=== PATIENT | male | born 1965 | race Caucasian/White ===

== ENCOUNTER → 2016-11-15 | Outpatient (CLI) | payer BC ==
[2015-03-29 11:00] VITALS: BP 136/87
[~2016-11-15] MED LIST: BUPIVACAINE MPF 0.5% 10 ML VIAL for KCIC. IJ ONE; CEPH500T PO; ENOX40DI SQ; GABA-585 PO; HYDR-2762 PO; IBUP-1060 PO; INSU300I SQ; IOHEXOL 300 MG/ML 50 ML VIAL. INT ART ONE; LIDOCAINE 1% Multi-Dose 20 ML VIAL. ID ONE; METF-620 PO; WARF5TAB7 PO; methylPREDNISolone ACETATE 40 MG/ML VIAL. INT ART ONE
--- NOTE | 2016-11-16 08:56 | KCIC ---
PROCEDURE Therapeutic right ankle injection using fluoroscopic guidance. HISTORY Ankle pain. TECHNIQUE The procedure was explained to the patient as were potential risks, including infection, bleeding or allergic reaction. All questions were answered. Informed written and verbal consent was obtained. The anterior ankle was prepped and draped in the usual sterile manner. Following administration of local anesthetic, a 22-gauge needle was advanced into the tibiotalar joint without difficulty, with care taken to avoid the tendons and vascular structures. Following negative aspiration, intra-articular position was confirmed with 2 cc of Omnipaque 300 contrast. Subsequently, a mixture of 1 cc (40 mg) Depo-Medrol, 2 cc 0.5% Marcaine and 2 cc 1% lidocaine were injected without difficulty. The needle was removed. There was good hemostasis at the injection site. The patient left in stable condition without immediate complication. The patient was given postprocedural instructions, instructed to contact us or the emergency room if there are any complications. A single spot image was obtained. FLUOROSCOPY TIME: 49 seconds Electronically signed by: Meño Bello MD (11/16/2016 8:53 AM) [facility]
== END | disposition home or self-care (01) ==
LOC: RAD 11-14 10:16
PROVIDERS: ATTEND Nurse Practitioner Gerontology
DX: M19.071 Primary osteoarthritis, right ankle and foot (principal)
CPT/HCPCS: 20610; 77002; J1030; Q9967

== ENCOUNTER → 2017-03-05 | Outpatient (CLI) | payer BC ==
[2015-03-29 11:00] VITALS: BP 136/87
--- NOTE | 2017-03-05 15:04 | KCIC ---
PROCEDURE Therapeutic right ankle injection using fluoroscopic guidance. HISTORY Ankle pain. Pain is chronic. TECHNIQUE The procedure was explained to the patient as were potential risks, including infection, bleeding or allergic reaction. All questions were answered. Informed written and verbal consent was obtained. The anterior ankle was prepped and draped in the usual sterile manner. Following administration of local anesthetic, a 22-gauge needle was advanced into the tibiotalar joint without difficulty, with care taken to avoid the tendons and vascular structures. Following negative aspiration, intra-articular position was confirmed with 1 cc of Omnipaque 300 contrast. Subsequently, a mixture of 1 cc (40 mg) Depo-Medrol, 2 cc 0.5% Marcaine and 2 cc 1% lidocaine were injected without difficulty. The needle was removed. There was good hemostasis at the injection site. The patient left in stable condition without immediate complication. A single spot image was obtained. FLUOROSCOPY TIME: 23 seconds Electronically signed by: Meño Bello MD (03/05/2017 3:01 PM) [facility]
== END | disposition home or self-care (01) ==
LOC: KCIC 14:08
PROVIDERS: ATTEND Nurse Practitioner Gerontology
DX: M25.571 Pain in right ankle and joints of right foot (principal)
CPT/HCPCS: 20610; 77002

== ENCOUNTER → 2017-11-08 | Outpatient (CLI) | payer OTHER | END | disposition home or self-care (01) | LOC: KCIC MRI 14:03 | DX: M25.571 Pain in right ankle and joints of right foot (principal); I10 Essential (primary) hypertension; E11.9 Type 2 diabetes mellitus without complications; R60.0 Localized edema; Z85.51 Personal history of malignant neoplasm of bladder; Z86.718 Personal history of other venous thrombosis and embolism | CPT/HCPCS: 73721 ==

== ENCOUNTER → 2017-12-19 | Day surgery (SDC) | payer OTHER ==
[~2017-12-19] MED LIST changes: -BUPIVACAINE MPF 0.5% 10 ML VIAL for KCIC. IJ ONE; +HYDROmorphone 2 MG/ML VIAL IV PRN; -IOHEXOL 300 MG/ML 50 ML VIAL. INT ART ONE; +IV RINGERS,LACTATED 1000ML 1,000 ML IV SCH; -LIDOCAINE 1% Multi-Dose 20 ML VIAL. ID ONE; +LIDOCAINE 1% PF 2 ML VIAL. ID PRN; +LIDOCAINE 2% PF Vial for OR 5 ML VIAL. ONE; -METF-620 PO; +METF10007 PO; +MORPHINE SULFATE 2 MG/ML VIAL. IV PRN; +ONDANSETRON PF 4 MG/2 ML VIAL. IV PRN; +PROCHLORPERAZINE 10 MG/2 ML VIAL. IV PRN; +PROPOFOL 40 ML IV ONE; +WARF-31 PO; -WARF5TAB7 PO; +fentaNYL PF VIAL 100 MCG/2 ML VIAL IV PRN; +insulin SQ; -methylPREDNISolone ACETATE 40 MG/ML VIAL. INT ART ONE
[2017-12-19 13:18] VITALS: BP 154/78
== END | disposition home or self-care (01) ==
LOC: ENDOS 11:28
PROVIDERS: ATTEND Internal Medicine Gastroenterology
DX: K22.2 Esophageal obstruction (principal); K29.50 Unspecified chronic gastritis without bleeding; M19.90 Unspecified osteoarthritis, unspecified site; E11.9 Type 2 diabetes mellitus without complications; M79.7 Fibromyalgia; K21.9 Gastro-esophageal reflux disease without esophagitis; I10 Essential (primary) hypertension; Z83.3 Family history of diabetes mellitus; Z82.49 Family history of ischemic heart disease and other diseases of the circulatory system; Z82.3 Family history of stroke; F17.200 Nicotine dependence, unspecified, uncomplicated; Z79.84 Long term (current) use of oral hypoglycemic drugs; Z79.899 Other long term (current) drug therapy; Z98.890 Other specified postprocedural states
CPT/HCPCS: 43235; 43450; 82962; J2001; J2704

== ENCOUNTER → 2018-01-10 | Day surgery (SDC) | payer OTHER ==
[~2018-01-10] MED LIST changes: -HYDROmorphone 2 MG/ML VIAL IV PRN; -LIDOCAINE 1% PF 2 ML VIAL. ID PRN; +LIDOCAINE 2% PF 2ML VIAL. ONE; -LIDOCAINE 2% PF Vial for OR 5 ML VIAL. ONE; -MORPHINE SULFATE 2 MG/ML VIAL. IV PRN; -ONDANSETRON PF 4 MG/2 ML VIAL. IV PRN; -PROCHLORPERAZINE 10 MG/2 ML VIAL. IV PRN; +PROPOFOL 20 ML IV ONE; -fentaNYL PF VIAL 100 MCG/2 ML VIAL IV PRN
[2018-01-10 11:16] VITALS: BP 145/76
--- NOTE | 2018-01-10 12:24 | CONS ---
DATE OF CONSULTATION: 01/10/2018 UPDATE HISTORY AND PHYSICAL REFERRING PHYSICIAN: Karthik Arriaga. REASON: Colorectal screening. HISTORY OF PRESENT ILLNESS: A 52-year-old male whose past medical history is significant for gastroesophageal reflux disease as well as arthritis, diabetes, fibromyalgia, high blood pressure. He is seen for a screening colon exam. Bowel habits are regular without diarrhea or constipation. There has been no melena or hematochezia. Weight and appetite otherwise have been stable. No additional complaints since his recent upper scope. PAST MEDICAL HISTORY: Arthritis, blood clot, diabetes, fibromyalgia, GERD, high blood pressure. ALLERGIES: None. MEDICATIONS: Include gabapentin, hydrocodone, metformin and insulin. PAST SURGICAL HISTORY: Status post ankle surgery. SOCIAL HISTORY: He is a smoker and drinker. FAMILY HISTORY: Significant for CVA, diabetes, and hypertension with his mother. REVIEW OF SYSTEMS: Per records. PHYSICAL EXAMINATION: GENERAL: Reveals a well-nourished, well-developed male, who is alert, cooperative, in no acute distress. VITAL SIGNS: Temperature 97.3, pulse 58, respirations 18. HEENT: Normocephalic and atraumatic head. Pupils and extraocular muscles are not tested. Sclerae are anicteric. NECK: Supple. LUNGS: Clear. CARDIOVASCULAR: Reveals S1, S2 without S3, S4 or appreciable murmur. ABDOMEN: Reveals a soft abdomen, normal bowel sounds without appreciable hepatosplenomegaly. EXTREMITIES: Reveals no cyanosis, clubbing or edema. IMPRESSION: Colorectal screening is warranted at this time. Risks and benefits of procedure have been previously discussed, the patient is willing to proceed. MING PEOPLES MD DR: KAM/zeeshan JOB#: [id number] / [id number]
== END | disposition home or self-care (01) ==
LOC: SURG 09:29
PROVIDERS: ATTEND Internal Medicine Gastroenterology
DX: Z12.11 Encounter for screening for malignant neoplasm of colon (principal); K64.0 First degree hemorrhoids; K21.9 Gastro-esophageal reflux disease without esophagitis; M19.90 Unspecified osteoarthritis, unspecified site; I10 Essential (primary) hypertension; E11.9 Type 2 diabetes mellitus without complications; M79.7 Fibromyalgia; Z79.4 Long term (current) use of insulin; Z79.84 Long term (current) use of oral hypoglycemic drugs; Z79.899 Other long term (current) drug therapy; Z98.890 Other specified postprocedural states; Z72.89 Other problems related to lifestyle; F17.200 Nicotine dependence, unspecified, uncomplicated; Z83.3 Family history of diabetes mellitus; Z82.49 Family history of ischemic heart disease and other diseases of the circulatory system; Z82.3 Family history of stroke
CPT/HCPCS: 45378; 82962; J2001; J2704

== ENCOUNTER → 2018-08-29 | Outpatient (CLI) | payer OTHER ==
[2018-01-10 11:16] VITALS: BP 145/76
[~2018-08-29] MED LIST changes: +CIPR500T94 PO; +GABA300C18 PO; -HYDR-2762 PO; +HYDR-2765 PO; +INSU100I32 SQ; -IV RINGERS,LACTATED 1000ML 1,000 ML IV SCH; -LIDOCAINE 2% PF 2ML VIAL. ONE; +LISI-334 PO; +PROAIR RESPICL90 MCG IH; -PROPOFOL 20 ML IV ONE; -PROPOFOL 40 ML IV ONE; +VENTOLIN HFA18 GM INH
--- NOTE | 2018-08-29 12:13 | KCIC ---
Examination: FOREARM RIGHT History: Puncture wound of the anterior forearm Comparison/Correlation: None Findings: Frontal and lateral views of the right forearm were obtained. Just superior to site is noted to have a puncture wound, there is a small linear density measuring 0.4 cm within the anterior soft tissues. Spurring about the elbow is noted. Bony densities are present at the olecranon fossa region. Possibly of loose bodies is not excluded. No fracture or bony destruction. Impression: Radiopaque punctate foreign body within the anterior soft tissues of the proximal forearm in close proximity to the site of the puncture wound on the basis of the lateral view. Degenerative changes about the elbow. This bodies not excluded involving the elbow. Electronically signed by: Ruy Guillen MD (08/29/2018 12:10 PM) [id number]
== END | disposition home or self-care (01) ==
LOC: KCIC 10:49
PROVIDERS: ATTEND Family Medicine
DX: S51.841A Puncture wound with foreign body of right forearm, initial encounter (principal); X58.XXXA Exposure to other specified factors, initial encounter; Y93.89 Activity, other specified; Y92.89 Other specified places as the place of occurrence of the external cause; Y99.8 Other external cause status; M19.021 Primary osteoarthritis, right elbow
CPT/HCPCS: 73090

== ENCOUNTER → 2018-09-08 | Day surgery (SDC) | payer OTHER ==
[~2018-09-08] VITALS: Ht 177.8 cm; Wt 101.2 kg
[~2018-09-08] MED LIST changes: +CALCIUM CARBONATE 500 MG TAB.CHEW PO PRN; +DEXAMETHASONE SOD PHOS 4 MG/ML VIAL ONE; +HYDROcodone/APAP 5/325MG 1 TAB TABLET PO ONE; +HYDROmorphone 2 MG/ML VIAL IV PRN; +IV RINGERS,LACTATED 1000ML 1,000 ML IV SCH; +LIDOCAINE 1% PF 2 ML VIAL. ID PRN; +LIDOCAINE 1%/EPI 1:100,000 20 ML VIAL. ONE; +LIDOCAINE 2% PF 5 ML VIAL. ONE; +MIDAZOLAM HCL/PF 2 MG/2 ML VIAL. ONE; +MORPHINE SULFATE 2 MG/ML VIAL. IV PRN; +ONDANSETRON PF 4 MG/2 ML VIAL. IV PRN; +ONDANSETRON PF 4 MG/2 ML VIAL. ONE; +PROCHLORPERAZINE 10 MG/2 ML VIAL. IV PRN; +PROPOFOL 20 ML IV ONE; +SEVOFLURANE 31 TO 60 MINUTES. IH ONE; +ceFAZolin 2GM PREMIX 2 GM/50 ML BAG IV ONE; +fentaNYL PF VIAL 100 MCG/2 ML VIAL IV PRN; +fentaNYL PF VIAL 100 MCG/2 ML VIAL ONE
--- NOTE | 2018-09-08 11:13 | DISCH ---
DISCHARGE INSTRUCTIONS Condition on Discharge Condition on Discharge: Stable Activity After Discharge Activity Instructions for Disc: Activity as tolerated Diet after Discharge Diet after Discharge: Diabetic No Calorie Level Wound Incision Care Wound/Incision Care: Other, see below (keep dressing clean and dry X 72 hours, may then remove and shower) Follow-Up Follow up with: Dr Funes in 1 week in office, call for appt [phone] MING FUNES MD September 08, 2018 11:13
--- NOTE | 2018-09-08 11:19 | PDOC4 ---
Operative Note Operative Note Operative Note: Preoperative Diagnosis: Foreign body in right forearm Postoperative Diagnosis: Same Procedure: Excision of right forearm foreign body Surgeon: Rakesh Anesthesia: Gen. EBL: 10 mL Specimen: Right forearm foreign body Drains: None Complications: None Indication: The patient is a 53-year-old male who states that a piece of metal became lodged into his right forearm while at work. X-rays confirm the presence of a foreign body in the soft tissues of the right forearm. He was referred for removal as it does appear symptomatic. The risks of surgery were discussed which include bleeding, infection, nerve injury, pain, inability to retrieve foreign body, potential need for additional surgery or procedure. He understands and would like to proceed. Description: The patient was taken to the operating room and placed supine on the operating table. Gen. anesthesia was performed. The right forearm was then prepped and draped in a standard surgical manner. The C-arm was used to assist with localization and removal of the foreign body throughout the case. Using C- arm the approximate location of the foreign body was readily identified in the proximal medial aspect of the forearm. An incision was made in the skin with a scalpel. Blunt dissection was carried down through subcutaneous tissue. Based on the C-arm evaluation the foreign body seemed to lie in the muscle tissue blunt dissection was used in the region and we were able to identify the foreign body which corresponded to a black fragment of metal. The foreign object was readily retrieved and sent as a specimen. There was no evidence of any purulent fluid or signs of infection. The wound was irrigated with sterile saline. Hemostasis was good. The subcutaneous tissue was closed with 3-0 Vicryl. The skin was approximated with 4-0 Monocryl and the incision was infiltrated with half percent Marcaine with epinephrine. Steri-Strips and a sterile dressing were applied. The patient tolerated the procedure well and was sent to the recovery room in stable condition. At the end of the case all counts were correct. MING FUNES MD September 08, 2018 11:19
--- NOTE | 2018-09-08 12:13 | EKG ---
[facility] [address] [place] [address] Test Date: 2018-09-08 Test Time: 12:05:58 Pat Name: LEON PERDOMO Department: Room: Gender: M Medical Records Secretary: VIKI : 1965 Requested By: MICHELLE SPEAR Order Number: [id number] Reading MD: Measurements Intervals [place] Rate: 69 P: 52 MS: 186 QRS: 25 QRSD: 74 T: 53 QT: 376 QTc: 404 Interpretive Statements SINUS RHYTHM QRS(T) CONTOUR ABNORMALITY CONSISTENT WITH ANTEROSEPTAL INFARCT AGE UNDETERMINED ABNORMAL ECG RI6.01 Unconfirmed report No previous ECG available for comparison
[2018-09-08 12:52] VITALS: BP 154/82
== END | disposition home or self-care (01) ==
LOC: SURG 08:25
PROVIDERS: ATTEND Surgery
DX: M79.5 Residual foreign body in soft tissue (principal); E11.40 Type 2 diabetes mellitus with diabetic neuropathy, unspecified; I10 Essential (primary) hypertension; K29.50 Unspecified chronic gastritis without bleeding; K21.9 Gastro-esophageal reflux disease without esophagitis; J44.9 Chronic obstructive pulmonary disease, unspecified; F17.210 Nicotine dependence, cigarettes, uncomplicated; Z98.890 Other specified postprocedural states; Z72.89 Other problems related to lifestyle; Z79.84 Long term (current) use of oral hypoglycemic drugs
CPT/HCPCS: 25248; 76000; 93005; J0696; J0780; J1100; J2001; J2405; J2704; J3010; J3490; J2250

== ENCOUNTER → 2018-11-27 | Outpatient (CLI) | payer OTHER ==
[2018-09-08 12:52] VITALS: BP 154/82
[~2018-11-27] MED LIST changes: -CALCIUM CARBONATE 500 MG TAB.CHEW PO PRN; -DEXAMETHASONE SOD PHOS 4 MG/ML VIAL ONE; -HYDROcodone/APAP 5/325MG 1 TAB TABLET PO ONE; -HYDROmorphone 2 MG/ML VIAL IV PRN; -IV RINGERS,LACTATED 1000ML 1,000 ML IV SCH; -LIDOCAINE 1% PF 2 ML VIAL. ID PRN; -LIDOCAINE 1%/EPI 1:100,000 20 ML VIAL. ONE; -LIDOCAINE 2% PF 5 ML VIAL. ONE; -MIDAZOLAM HCL/PF 2 MG/2 ML VIAL. ONE; -MORPHINE SULFATE 2 MG/ML VIAL. IV PRN; -ONDANSETRON PF 4 MG/2 ML VIAL. IV PRN; -ONDANSETRON PF 4 MG/2 ML VIAL. ONE; -PROCHLORPERAZINE 10 MG/2 ML VIAL. IV PRN; -PROPOFOL 20 ML IV ONE; -SEVOFLURANE 31 TO 60 MINUTES. IH ONE; -ceFAZolin 2GM PREMIX 2 GM/50 ML BAG IV ONE; -fentaNYL PF VIAL 100 MCG/2 ML VIAL IV PRN; -fentaNYL PF VIAL 100 MCG/2 ML VIAL ONE
--- NOTE | 2018-11-27 11:21 | KCIC ---
MR of the left shoulder HISTORY: Left shoulder pain after fall 2 years ago. TECHNIQUE: Routine multiplanar sequences are obtained. FINDINGS: Acromioclavicular joint is degenerative, with mild undersurface osteophytes and mass effect. Full-thickness rupture of the anterior supraspinatus tendon measures 2.5 cm AP diameter with 2.5 cm retraction. Partial tearing through the more posterior rotator cuff. Generalized tendinosis. No measurable subscapularis tendon tear. Mild fluid in the subdeltoid bursa. No significant glenohumeral joint effusion. Mild degenerative changes at the glenohumeral joint with small osteophytes. Suboptimal labral evaluation due to motion degradation. Diffuse labral irregularity compatible with degeneration, possible mild degenerative tearing. No definite labral detachment. Biceps tendon demonstrates tendinosis. No aggressive bone destruction or acute fracture. No acute soft tissue abnormality. IMPRESSION: 1. Moderate full-thickness retracted rotator cuff tear of the supraspinatus tendon. 2. Primary osteoarthritis. 3. Generalized labral degeneration. Electronically signed by: Meño Bello MD (11/27/2018 11:18 AM) [facility]
== END | disposition home or self-care (01) ==
LOC: KCIC MRI 07:45
PROVIDERS: ATTEND Orthopaedic Surgery
DX: S46.012A Strain of muscle(s) and tendon(s) of the rotator cuff of left shoulder, initial encounter (principal); M19.012 Primary osteoarthritis, left shoulder; M25.712 Osteophyte, left shoulder; X58.XXXA Exposure to other specified factors, initial encounter; Y93.89 Activity, other specified; Y92.89 Other specified places as the place of occurrence of the external cause; Y99.8 Other external cause status
CPT/HCPCS: 73221

== ENCOUNTER 2019-02-27 05:57 | Day surgery (SDC) | payer OTHER ==
[~2019-02-27] VITALS: Ht 170.2 cm; Wt 106.0 kg
[~2019-02-27 05:57] MED LIST changes: +IBUP200T77 PO; +NORT50CA PO
[2019-02-27] MEDS ORDERED: DEXAMETHASONE SOD PHOS 4 MG/ML VIAL ONE ×2 (06:30→06:57)
[2019-02-27] MEDS ORDERED: PROPOFOL 20 ML IV ONE ×2 (06:30→08:14)
[2019-02-27] MEDS ORDERED: INSULIN LISPRO 100 UNIT/ML 3ML VIAL for OP,RR ONLY. SQ PRN (06:30)
[2019-02-27] MEDS ORDERED: ONDANSETRON PF 4 MG/2 ML VIAL. ONE (06:30)
[2019-02-27] MEDS ORDERED: LIDOCAINE 2% PF 5 ML VIAL. ONE (06:30)
[2019-02-27] MEDS ORDERED: ROCURONIUM 50 MG/5 ML VIAL. ONE ×2 (06:31→07:52)
[2019-02-27] MEDS ORDERED: fentaNYL PF VIAL 100 MCG/2 ML VIAL ONE ×2 (06:54→07:42)
[2019-02-27] MEDS ORDERED: MIDAZOLAM HCL/PF 2 MG/2 ML VIAL. ONE ×2 (06:54→07:04)
[2019-02-27] MEDS ORDERED: EPINEPHrine VIAL 30 MG/30 ML VIAL ONE (06:57)
[2019-02-27] MEDS ORDERED: KETOROLAC 30 MG/ML VIAL. ONE (06:58)
[2019-02-27] MEDS ORDERED: HYDROmorphone 2 MG/ML VIAL IV PRN (07:00)
[2019-02-27] MEDS ORDERED: PROCHLORPERAZINE 10 MG/2 ML VIAL. IV PRN (07:00)
[2019-02-27] MEDS ORDERED: IV RINGERS,LACTATED 1000ML 1,000 ML IV SCH (07:00)
[2019-02-27] MEDS ORDERED: MORPHINE SULFATE 2 MG/ML VIAL. IV PRN (07:00)
[2019-02-27] MEDS ORDERED: fentaNYL PF VIAL 100 MCG/2 ML VIAL IV PRN (07:00)
[2019-02-27] MEDS ORDERED: ROPIVacaine 0.5% PF 20 ML VIAL. ONE (07:04)
[2019-02-27 07:16] LABS: CALCIUM 9.4 mg/dL (8.5-10.1); CREATININE 1.1 mg/dL (0.7-1.3); POTASSIUM 4.6 mmol/L (3.5-5.1)
[2019-02-27 07:21] LABS: ALBUMIN 3.8 g/dL (3.4-5.0); TOTAL BILIRUBIN 0.5 mg/dL (0.2-1.0); TOTAL PROTEIN 7.6 g/dL (6.4-8.2)
[2019-02-27] MEDS ORDERED: ceFAZolin 2GM PREMIX 2 GM/50 ML BAG IV ONE (08:00)
--- NOTE | 2019-02-27 08:02 | RAD ---
CHEST PA LATERAL Clinical indications: Preoperative study for left shoulder rotator cuff repair. History of hypertension and smoking COMPARISON: March 25, 2005 Findings: No acute lung infiltrate or pleural effusion or pulmonary edema or lung mass or pneumothorax is seen. The heart size, pulmonary vasculature, mediastinum and both hedy are unremarkable. The osseous structures appear intact. Impression: No acute radiographic abnormality is seen. Electronically signed by: Al García MD (02/27/2019 7:59 AM) [facility]
[2019-02-27] MEDS ORDERED: GLYCOPYRROLATE 1 MG/5 ML VIAL. ONE (08:20)
[2019-02-27] MEDS ORDERED: NEOSTIGMINE METHYLSULFATE 5 MG/5 ML SYRINGE. ONE (08:20)
[2019-02-27] MEDS ORDERED: SEVOFLURANE 61 TO 120 MINUTES. IH ONE (08:21)
[2019-02-27 08:35] LABS: BASO # 0.1 x10^3/uL (0.0-0.2); BASO % 1 % (0-3); EOS # 0.6 x10^3/uL (0.0-0.7); EOS % 5 % (0-3); HEMATOCRIT 42.3 % (39.0-53.0); HEMOGLOBIN 14.6 g/dL (13.0-17.5); LYMPH # 2.5 x10^3/uL (1.0-4.8); LYMPH % 21 % (24-48); MEAN CORPUSCULAR HEMOGLOBIN 33 pg (25-35); MEAN CORPUSCULAR HGB CONC 35 g/dL (31-37); MEAN CORPUSCULAR VOLUME 96 fL (79-100); MONO # 0.9 x10^3/uL (0.0-1.1); MONO % 8 % (0-9); NEUT # 8.1 x10^3/uL (1.8-7.7); NEUT % 66 % (31-73); PLATELET COUNT 375 x10^3/uL (140-400); RED BLOOD COUNT 4.42 x10^6/uL (4.30-5.70); RED CELL DISTRIBUTION WIDTH 12.3 % (11.5-14.5); WHITE BLOOD COUNT 12.3 x10^3/uL (4.0-11.0)
[2019-02-27] MEDS ORDERED: OXYC1TAB19 PO (10:09)
[2019-02-27] MEDS: fentaNYL PF VIAL 100 MCG/2 ML VIAL IV PRN ×2 (10:13→10:26)
--- NOTE | 2019-02-27 10:14 | DISCH ---
DISCHARGE INSTRUCTIONS Condition on Discharge Condition on Discharge: Stable Activity After Discharge Activity Instructions for Disc: Other, see below (passive range of motion left shoulder only (lift with other arm or with physical therapist) otherwise keep arm at side) Exercise Instruction after Dis: Exercise per therapy (last where immobilizer when sleeping may remove during the day to hang arm down for pendulum exercises gentle range of motion eating or other fine motor use with the elbow at the side) Diet after Discharge Diet after Discharge: Diabetic No Calorie Level Wound Incision Care Wound/Incision Care: Change dressing (May remove dressing in 2 days may then shower), Other, see below Community/Resources/Services Services at Discharge: PT EVALUATE & TREAT (set up physical therapy early next week as soon as possible, prescription provided with instructions) Contacting the after DC Call your doctor for: Concerns you may have Follow-Up Follow up with: Dr. Silvestre 10 days SIRISHA SILVESTRE MD Feb 27, 2019 10:13
[2019-02-27] MEDS ORDERED: hydrALAZINE 20 MG/ML VIAL. ONE (10:16)
[2019-02-27] MEDS ORDERED: hydrALAZINE 20 MG/ML VIAL. IVP PRN (10:30)
[2019-02-27] MEDS ORDERED: HYDROcodone/APAP 7.5/325MG 1 TAB TABLET PO ONE (10:30)
[2019-02-27 10:50] VITALS: BP 150/72
--- NOTE | 2019-02-27 12:10 | PDOC4 ---
Operative Note Operative Note Date of surgery: 02/27/2019 Preoperative diagnosis: Left rotator cuff tear Postoperative diagnosis: Same with full-thickness distal supraspinatus tear impingement with a type 2+ acromion and type I SLAP tear Operative procedure: Left shoulder arthroscopy arthroscopic rotator cuff repair debridement of a type I SLAP tear and subacromial decompression Surgeon: Konrad Anesthesia: Gen. plus scalene block Estimated blood loss: 15 mL Complications: None Operative indications: Please see my orthopedic clinic note for detailed operative indications and note that we covered preoperatively the possibility of nonhealing infection nerve or blood vessel damage continued pain medical or other anesthetic complications among others and once again covered the postoperative restrictions expected and the long healing process requiring extensive physical therapy all his questions were answered he wishes to proceed with surgical evaluation and treatment having given informed consent Operative text: Patient identified procedure verified patient placed in the supine position on the operating table. After adequate amounts of general anesthesia plus a pre-existing scalene block were obtained he was placed decubitus left side up on the beanbag all bony prominences were well-padded and the left shoulder was examined under anesthesia he found to have full range of motion no instability the left shoulder was then prepped and draped in standard sterile fashion placed in the arthroscopic arm ascencio with a total of 10 pounds of traction after timeout was performed patient procedure identified and v erified a standard posterior portal was established an anterior portal established using spinal needle localization and the shoulder joint was systematically examined. He was noted to have a type I SLAP tear with labral fraying that extended to the anterior and posterior labrum with no insertional instability and therefore was debrided back to stable tissue using arthroscopic shaver biceps anchor was intact biceps showed no evidence of instability the subscapularis insertion was intact capsule ligament structures were otherwise normal and glenohumeral cartilage was well-preserved. The subacromial space was then entered and subacromial bursa tissue was cleared for visualization and the full-thickness rotator cuff identified and debrided as was the rotator cuff footprint. Since he did have a 2+ acromion with large anterior acromial spur an arthroscopic bur was used to convert the acromion to a type I removing the anterior acromial spur and a total of 2 Feli absorbable anchors were placed along the medial row double loaded and all 4 suture limbs associated with each anchor were passed separately in simple fashion and anchored laterally with a total of 2 Ventix absorbable anchors excellent apposition of the rotator cuff was noted with a watertight repair in all degrees of internal/external rotation any bony fragments were removed with arthroscopic shaver the joint was drained of arthroscopic fluid portals closed with nylon suture sterile dressings were applied patient was placed in an immobilizer extirpated transferred to postop holding in stable condition having tolerated procedure well SIRISHA PANIAGUA MD Feb 27, 2019 12:10
== END 2019-02-27 11:00 | disposition home or self-care (01) ==
LOC: SURG 05:57
PROVIDERS: ATTEND Orthopaedic Surgery
DX: S46.012A Strain of muscle(s) and tendon(s) of the rotator cuff of left shoulder, initial encounter (principal); S43.432A Superior glenoid labrum lesion of left shoulder, initial encounter; M75.42 Impingement syndrome of left shoulder; I10 Essential (primary) hypertension; J44.9 Chronic obstructive pulmonary disease, unspecified; K21.9 Gastro-esophageal reflux disease without esophagitis; K57.30 Diverticulosis of large intestine without perforation or abscess without bleeding; E11.42 Type 2 diabetes mellitus with diabetic polyneuropathy; M79.7 Fibromyalgia; E66.9 Obesity, unspecified; Z68.36 Body mass index [BMI] 36.0-36.9, adult; Z86.718 Personal history of other venous thrombosis and embolism; Z87.891 Personal history of nicotine dependence; Z72.89 Other problems related to lifestyle; Z79.84 Long term (current) use of oral hypoglycemic drugs; Z98.890 Other specified postprocedural states; X58.XXXA Exposure to other specified factors, initial encounter; Y93.89 Activity, other specified; Y92.89 Other specified places as the place of occurrence of the external cause; Y99.8 Other external cause status
CPT/HCPCS: 29822; 29826; 29827; 36415; 64415; 71046; 80053; 82962; 85025; A7015; C1713; J0171; J0360; J0696; J1100; J2001; J2250; J2405; J2704; J2710; J2795; J3010; J3490; J1885

== ENCOUNTER → 2020-01-28 | Outpatient (CLI) | payer OTHER ==
[~2020-01-28] MED LIST changes: +OXYC1TAB19 PO
--- NOTE | 2020-01-28 11:53 | KCIC ---
EXAMINATION: Magnetic resonance imaging (MRI) of the cervical spine without contrast 01/28/2020 10:15 AM HISTORY: Right-sided cervical radiculopathy. Right-sided shoulder pain and knot in the muscles. Right upper extremity numbness TECHNIQUE: Multiplanar multi-weighted MRI of the cervical spine was performed without intravenous contrast using the standard cervical spine protocol. Contrast information: None administered COMPARISON: None available. FINDINGS: The alignment of the cervical spine is normal. Vertebral bodies demonstrate normal signal intensity on all sequences. No acute fracture is identified; however, if trauma is suspected, a CT scan would be a more sensitive examination for fractures. The craniocervical junction is normal. The visualized portions of the skull base and the posterior fossa are normal. There is nonspecific T2 signal hyperintensity involving the left hemicord at C3-C4. Mild disc desiccation at C3-C4, C4-C5 and C5-C6. No soft tissue abnormality is identified. Normal signal voids are present in the vertebral arteries. C2-C3: The disk is normal in configuration. There is no facet arthropathy. There is no uncovertebral joint disease. There is no neuroforaminal stenosis. There is no spinal canal stenosis. C3-C4: There is a circumferential disc bulge with right foraminal disc extrusion. Mild facet arthropathy. Severe right and moderate left neural foraminal stenosis. Mild spinal canal stenosis. Mild T2 signal hyperintensity involving the left hemicord which is nonspecific. C4-C5: There is a mild disc bulge. Mild facet arthropathy. Mild bilateral neural foraminal stenosis. Mild spinal canal stenosis. C5-C6: There is a circumferential disc bulge. Mild facet arthropathy. Central disc protrusion. Mild neuroforaminal stenosis. No significant spinal canal stenosis. C6-C7: The disk is normal in configuration. There is no facet arthropathy. There is no uncovertebral joint disease. There is no neuroforaminal stenosis. There is no spinal canal stenosis. C7-T1: The disk is normal in configuration. There is no facet arthropathy. There is no uncovertebral joint disease. There is no neuroforaminal stenosis. There is no spinal canal stenosis. IMPRESSION: Right central disc extrusion at C3-C4 results in severe right neuroforaminal stenosis. There is a left central disc protrusion with left cervical hemicord signal alteration at C3-C4 which may represent myelomalacia. No definite cord expansion or mass effect. Electronically signed by: Carrie Houston MD (01/28/2020 11:50 AM) [facility]
== END ==
LOC: KCIC MRI 10:03
PROVIDERS: ATTEND Orthopaedic Surgery
DX: M47.22 Other spondylosis with radiculopathy, cervical region (principal); M48.02 Spinal stenosis, cervical region; M50.11 Cervical disc disorder with radiculopathy, high cervical region
CPT/HCPCS: 72141

== ENCOUNTER → 2020-03-31 | Outpatient (CLI) | payer OTHER ==
[~2020-03-31] MED LIST changes: +cholesterol med
--- NOTE | 2020-03-31 12:17 | PDOC1 ---
INITIAL PAIN CONSULT DATE OF SERVICE: DOS: DATE: 03/31/20 TIME: 12:08 CHIEF COMPLAINT: Chief Complaint: Neck and right upper extremity pain HISTORY OF PRESENT ILLNESS: 55-year-old male presents with history of pain base the neck and right upper extremity for about 3 months not the result of any specific injury or accident that he is aware of is getting worse with time and use of motion of the right arm with repetitive motion as well as reaching reaching up over his head is becoming more difficult with the right arm as well with some significant fatigue patient reports is very painful describes throbbing shooting aching and stabbing in the shoulder and arm forearm anteriorly biceps triceps anteriorly and posteriorly and in the hand with numbness in the fingers especially the thumb and first finger patient reports tingling with radiating pain intermittent intensity worse with activity primarily awaken him from sleep at night about 4-5 times can affect his ability to walk but no incontinence of the bowel or bladder. Patient reports he did have physical therapy which he felt was fairly helpful but is only short-lived he is to do the exercises from the therapy as well also taking Lyrica gabapentin he has tried hydrocodone Metformin also taking Motrin and Tylenol [id number] which decreases the pain but only very minimally. Patient reports a disability rating 0-10 10 being the worst is a 5 with family home responsibilities and life support activities 8 with recreation 9 with social activity occupational activities and tenderness sexual behavior 7 with self-care activities. Patient did have a MRI scan cervical spine showing C3-4 cervical disc bulge with right foraminal disc extrusion with severe right and moderate left neuroforaminal stenosis C5-6 oh circumferential disc bulge as well with central disc protrusion. PAST MEDICAL HISTORY: PMH: Type 2 diabetes, COPD, DVTs, hypertension, gastroesophageal reflux, dizziness, arthritis PREVIOUS SURGERIES: Past Surgical Hx: Shoulder surgery February 2019 on the left CURRENT MEDICATIONS: Current Meds: Active Scripts Medications Dose Route/Sig Max Daily Dose Days Date Category Percocet 7.5-325 Mg Tablet (Oxycodone/Acetaminophen) 1 Each Tablet 1 Tab PO PRN Q4HRS PRN MDD 2 Tablet(s) 14 02/27/19 Rx Ibuprofen 200 Mg Tablet 200 Mg PO PRN Q6HRS PRN 02/26/19 Reported Nortriptyline Hcl 50 Mg Capsule 50 Mg PO DAILY 02/26/19 Reported Proair Respiclick (Albuterol Sulfate) 90 Mcg Aer.pow.ba 1 Puff IH PRN Q6HRS PRN 09/04/18 Reported Ventolin Hfa Inhaler (Albuterol Sulfate) 18 Gm Hfa.aer.ad 2 Puff INH PRN QID PRN 09/04/18 Reported Basaglar Kwikpen U-100 (Insulin Glargine,Hum.rec.anlog) 100 Unit/1 Ml Insuln.pen 50 Unit SQ DAILY 09/04/18 Reported Gabapentin (Gabapentin) 300 Mg Capsule 900 Mg PO TID 09/04/18 Reported Lisinopril 20 Mg Tablet 1 Tab PO DAILY 09/04/18 Reported Metformin Hcl 1,000 Mg Tablet 1 Tab PO BID 03/25/15 Reported ALLERGIES; Allergies: Coded Allergies: No Known Drug Allergies (Unverified , 02/27/19) FAMILY HISTORY: Family Hx: Heart disease, COPD, asthma, diabetes, peripheral vascular disease SOCIAL HISTORY: Social Hx: Patient does not drink alcohol smokes cigarettes at 1 pack a day has for the past 40 years continues to smoke does not use any illegal illicit recreational drugs is lives with his spouse has no children living at home lives locally in 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 REVIEW OF SYSTEMS: ROS: Positive for those items mentioned in history of present illness, all systems are reviewed, otherwise negative, is complete full and well-documented on patient's chart PHYSICAL EXAM: VS: Blood pressure is 151/60 pulse 61 respirations 16 temperature 90.5 F height is 5 feet 10 inches weight is 236 pounds PE: PHYSICAL EXAMINATION: GENERAL: The patient is awake, alert, oriented, appropriate, very pleasant demeanor HEENT: Shows normocephalic, atraumatic. Extraocular movements are intact and symmetrical. Oral cavity: Mucous membranes moist and pink. Dentition is intact. NECK: Shows anterior throat supple without palpable lymphadenopathy noted. Swa llow reflex symmetrical. CHEST: Shows normal on inspection. Breath sounds are clear bilaterally, distant and coarse but no rales rhonchi or wheezes auscultated. HEART: Shows S1, S2 clear. No murmurs auscultated. ABDOMEN: Soft, nontender, nondistended, obese. No palpable organomegaly is noted. No rebound or guarding demonstrated. BACK: Shows spine grossly in the midline. Normal-appearing cervical lordotic curvature. Cervical paraspinous muscles show symmetrical with inspection on palpation some moderate tenderness diffusely bilaterally diffusely without significant radiation. Patient shows full rotation motion cervical spine with some moderate tenderness with far right lateral rotation but not left past 45 degrees closer to 90 degrees as well as full extension full for flexion without significant increase in pain. There is slightly increased thoracic kyphosis, some minor flattening of the lumbar lordotic curvature. EXTREMITIES: Upper extremities show deep tendon reflexes 2+ in the biceps and triceps tendons. Motor exam is 4 on a scale of 5 with right scalemaker drink, biceps and triceps flexion and 5/5 on the left. Peripheral pulses are 2+ radial. No peripheral edema is noted bilaterally. Upper extremities are warm and dry to touch, equal in color and appearance. Shoulder shrug is strong and intact without loss of strength on resistance but with some moderate pain reported with resistance on the right side this is true with abduction of the shoulders at 90 degrees tender on the right side again with pain rating to the lateral anterior aspect of the shoulder without loss of strength with resistance. SKIN: Shows warm and dry, good turgor. No edema. No sores, rashes or bruising throughout. IMPRESSION: Impression: 55-year-old male with approximate 3-month history increasing pain base of neck right upper extremity radicular fashion following a C5-6 dermatomal distribution MRI scan cervical spine as noted Type 2 diabetes Hypertension Cigarette smoking Arthritis Plan: Options were discussed with the patient including conservative medical management physical therapies interventional techniques. Patient elects interventional techniques. We will wait for preauthorization with his insurance provider and have him return for a translaminar cervical epidural steroid injection at this the 5 6 level. In the meantime patient will continue with stretching strength exercises physical therapy exercises and will renew his physical therapy as he feels this was beneficial. DEEP SON MD Mar 31, 2020 12:17
== END | disposition home or self-care (01) ==
LOC: PNCL 10:05
PROVIDERS: ATTEND Anesthesiology
DX: M54.2 Cervicalgia (principal); M79.601 Pain in right arm; E11.9 Type 2 diabetes mellitus without complications; J44.9 Chronic obstructive pulmonary disease, unspecified; I10 Essential (primary) hypertension; K21.9 Gastro-esophageal reflux disease without esophagitis; M19.90 Unspecified osteoarthritis, unspecified site; E66.9 Obesity, unspecified; F17.210 Nicotine dependence, cigarettes, uncomplicated; Z79.899 Other long term (current) drug therapy; Z79.84 Long term (current) use of oral hypoglycemic drugs; Z79.82 Long term (current) use of aspirin; Z98.890 Other specified postprocedural states; Z72.89 Other problems related to lifestyle; Z82.49 Family history of ischemic heart disease and other diseases of the circulatory system; Z83.3 Family history of diabetes mellitus
CPT/HCPCS: G0463

== ENCOUNTER → 2020-04-28 | Outpatient (CLI) | payer OTHER ==
[~2020-04-28] MED LIST changes: +ASPI-630 PO; +IOHEXOL 180 MG/ML 10 ML VIAL. ONE; -LISI-334 PO; +LISI20TA18 PO; +methylPREDNISolone ACETATE 40 MG/ML VIAL. ONE; +methylPREDNISolone ACETATE 80 MG/ML VIAL. ONE
--- NOTE | 2020-04-28 11:50 | PDOC ---
Progress Note - Pain Clinic Date of Service: DOS: DATE: 04/28/20 TIME: 11:46 Diagnosis: Dx: Cervical radiculopathy with cervical degenerative disease and cervical spinal stenosis with cervical herniated disc History or Present Illness: HPI: 55-year-old male returns follow-up status post evaluation and preop for cervical epidural steroid injection. Patient is obtained this now would like to proceed. Patient reports still pain the base the neck and right upper extremity as it was previously no new differences no new changes patient reports pain is tingling and burning aching tight and shooting in the arm radiating constant unbearable at times on and off in intensity but always present. Patient ports in the base of the right shoulder right triceps and biceps into the forearm on the right side as well into the wrist and tingling in the fingers of the right hand. Patient reports the pain is a 10 on scale 10 is worse over the past week 7 on average 6 at its least and is a 6 today. Patient reports no new motor or sensory deficits or other complaints. Physical Exam: VS: Pressure is 121/72 pulse 75 respirations 16 temperature is 98.3 F weight is 237 pounds PE: PHYSICAL EXAMINATION: GENERAL: The patient is awake, alert, oriented, appropriate, very pleasant demeanor HEENT: Shows normocephalic, atraumatic. Extraocular movements are intact and symmetrical. Oral cavity: Mucous membranes moist and pink. NECK: Shows anterior throat supple without palpable lymphadenopathy noted. Swallow reflex symmetrical. CHEST: Shows normal on inspection. Breath sounds are clear bilaterally. HEART: Shows S1, S2 clear. No murmurs auscultated. ABDOMEN: Soft, nontender, nondistended, obese. No palpable organomegaly is noted. No rebound or guarding demonstrated. BACK: Shows spine grossly in the midline. Normal-appearing cervical lordotic curvature. Cervical paraspinous muscles show symmetrical with inspection, on palpation shows some moderate tenderness diffusely in the inferior aspect of the paraspinous muscles and more on the right than the left into the superior medial trapezius but without trigger points without atrophy hypertrophy or asymmetry. There is slightly increased thoracic kyphosis, some minor flattening of the lumbar lordotic curvature. EXTREMITIES: Upper extremities show deep tendon reflexes 2+ in the biceps and triceps tendons. Motor exam is 4 on a scale of 5 with right rib strength, biceps and triceps flexion and 5/5 on the left. Peripheral pulses are 2+ radial. No peripheral edema is noted bilaterally. Upper extremities are warm and dry to touch, equal in color and appearance. SKIN: Shows warm and dry, good turgor. No edema. No sores, rashes or bruising throughout. Procedure: Procedure: Options were discussed with the patient. Patient chart was reviewed his his current medication regimen updated current review of systems updated today as well. We will proceed with a cervical epidural steroid injection today with fluoroscopic guidance. Risks were discussed including but not limited to: Bleeding, infection, possibility of epidural hematoma and subsequent neurol ogical compromise, dural puncture, headaches, spinal cord and/or nerve damage, side effects of steroid medication, and poor results regarding pain control. Patient understands wished to proceed. Patient will return to the clinic in approximately 2 weeks for follow-up was counseled as to return appointment activity level and side effects to be aware of. Medication Injected: Med Injected: Procedure cervical epidural steroid injection at the C6-7 level, using local anesthetic under sterile prep and drape using C-arm fluoroscopic guidance under local anesthesia medications injected ; 120 mg Depo-Medrol + 5 mL normal saline and 2 mL contrast; condition at discharge is stable patient tolerated procedure well. and had no complications Condition at Discharge: Condition at Discharge: Condition at discharge stable, patient tolerated procedure well and had no complications. DEEP SON MD Apr 28, 2020 11:50
== END | disposition home or self-care (01) ==
LOC: PNCL 10:58
PROVIDERS: ATTEND Anesthesiology
DX: M50.10 Cervical disc disorder with radiculopathy, unspecified cervical region (principal); M48.02 Spinal stenosis, cervical region; I10 Essential (primary) hypertension; J44.9 Chronic obstructive pulmonary disease, unspecified; M19.90 Unspecified osteoarthritis, unspecified site; E66.9 Obesity, unspecified; E11.9 Type 2 diabetes mellitus without complications; K21.9 Gastro-esophageal reflux disease without esophagitis; G47.30 Sleep apnea, unspecified; F17.210 Nicotine dependence, cigarettes, uncomplicated; Z79.4 Long term (current) use of insulin; Z79.899 Other long term (current) drug therapy; Z98.890 Other specified postprocedural states
CPT/HCPCS: 62321; J1030; J1040; Q9965; 62323

== ENCOUNTER → 2020-05-12 | Outpatient (CLI) | payer OTHER ==
[~2020-05-12] MED LIST changes: +LISI-334 PO; -LISI20TA18 PO
--- NOTE | 2020-05-12 11:21 | PDOC ---
Progress Note - Pain Clinic Date of Service: DOS: DATE: 05/12/20 TIME: 11:17 Diagnosis: Dx: Cervical radiculopathy with cervical degenerative disease and cervical spinal stenosis with cervical herniated disc History or Present Illness: HPI: 55-year-old male returns follow-up status post cervical epidural steroid injection x1. Patient reports about 70% improvement in the neck and right upper extremity pain. Patient has been increased activity with greater ease and comfort sleeping better at night increase his distance walking doing household activities work activities driving with greater ease and comfort. Patient reports no new motor or sensory deficits reports the pain is in the base the neck and the right upper extremity rating the posterior deltoid posterior tricep forearm and hand with some tingling in the hand as well as anterior forearm and biceps patient reports is much better than it was however still rates his pain as an 8 on scale 10 is worse over the past week for an average 1 its least is a 4 today. Patient describes pain as dull and tight in the neck shooting in the right upper extremity and shoulder tingling in the arm and hand as well but on and off in intensity and significantly decreased in intensity since last injection. Patient reports he started physical therapy yesterday and feels that he is going in the right direction with doing some exercises even this morning. She reports no new motor or sensory deficits no bowel or bladder incontinence or other complaints. Physical Exam: VS: Blood pressure is 121/81 pulse 83 respirations 16 temperature 98.3 F weight is 228 pounds PE: PHYSICAL EXAMINATION: GENERAL: The patient is awake, alert, oriented, appropriate, very pleasant demeanor HEENT: Shows normocephalic, atraumatic. Extraocular movements are intact and symmetrical. Oral cavity: Mucous membranes moist and pink. NECK: Shows anterior throat supple without palpable lymphadenopathy noted. Swallow reflex symmetrical. CHEST: Shows normal on inspection. Breath sounds are clear bilaterally. HEART: Shows S1, S2 clear. No murmurs auscultated. ABDOMEN: Soft, nontender, nondistended, obese. No palpable organomegaly is noted. No rebound or guarding demonstrated. BACK: Shows spine grossly in the midline. Normal-appearing cervical lordotic curvature. Cervical paraspinous muscles show symmetrical on inspection, on palpation some moderate tenderness diffusely bilaterally diffusely without significant radiation. Patient is good rotation motion cervical spine both laterally as well as extension flexion without significant pain reported. There is slightly increased thoracic kyphosis, some flattening of the lumbar lordotic curvature. EXTREMITIES: Upper extremities show deep tendon reflexes 2+ in the biceps and triceps tendons. Motor exam is 4 on a scale of 5 with right rib strength, biceps and triceps flexion and 5/5 on the left. Peripheral pulses are 2+ radial. No peripheral edema is noted bilaterally. Upper extremities are warm and dry to touch, equal in color and appearance. SKIN: Shows warm and dry, good turgor. No edema. No sores, rashes or bruising throughout. Procedure: Procedure: Options were discussed with the patient. Patient will chart reviews his current medication regimen updated current review of systems updated today as well. We will proceed with a cervical epidural steroid injection today with fluoroscopic guidance as the second in the series. Risks were discussed including but not limited to: Bleeding, infection, possibility of epidural hematoma and subsequent neurological compromise, dural puncture, headaches, spinal cord and/or nerve damage, side effects of steroid medication, and poor results regarding pain control. Patient understands and wished to proceed. Patient will return to clinic in approximate 2 weeks for follow-up, was counseled as to return appointment activity level, and side effects to be aware of. Medication Injected: Med Injected: Procedure cervical epidural steroid injection at the C6-7 level, using local anesthetic under sterile prep and drape using C-arm fluoroscopic guidance under local anesthesia medications injected ; 120 mg Depo-Medrol + 5 mL normal saline and 2 mL contrast; condition at discharge is stable patient tolerated procedure well. and had no complications Condition at Discharge: Condition at Discharge: Condition at discharge stable, patient tolerated the procedure well and had no complications. DEEP SON MD May 12, 2020 11:21
--- NOTE | 2020-05-12 11:22 | PDOC4 ---
PROCEDURE Procedure Patient was consented for cervical epidural steroid injection. Risks were d iscussed including but not limited to: Bleeding, infection, possibility of epidural hematoma and subsequent neurological compromise, dural puncture, headaches, spinal cord and/or nerve damage, side effects of steroid medication, and poor results regarding pain control. Patient understands and wished to proceed. Procedure cervical epidural steroid injection at the C6-7 level, using local anesthetic under sterile prep and drape using C-arm fluoroscopic guidance under local anesthesia medications injected ; 120 mg Depo-Medrol + 5 mL normal saline and 2 mL contrast; condition at discharge is stable patient tolerated procedure well. and had no complications DEEP SON MD May 12, 2020 11:22
== END | disposition home or self-care (01) ==
LOC: PNCL 10:42
PROVIDERS: ATTEND Anesthesiology
DX: M50.10 Cervical disc disorder with radiculopathy, unspecified cervical region (principal); M48.02 Spinal stenosis, cervical region; I10 Essential (primary) hypertension; E11.42 Type 2 diabetes mellitus with diabetic polyneuropathy; J44.9 Chronic obstructive pulmonary disease, unspecified; K21.9 Gastro-esophageal reflux disease without esophagitis; M19.90 Unspecified osteoarthritis, unspecified site; E66.9 Obesity, unspecified; G47.30 Sleep apnea, unspecified; F17.210 Nicotine dependence, cigarettes, uncomplicated; Z79.82 Long term (current) use of aspirin; Z79.4 Long term (current) use of insulin; Z79.899 Other long term (current) drug therapy; Z98.890 Other specified postprocedural states; Z72.89 Other problems related to lifestyle
CPT/HCPCS: 62321; J1030; J1040; Q9965

== ENCOUNTER → 2020-06-02 | Outpatient (CLI) | payer OTHER ==
[~2020-06-02] MED LIST changes: +BUPIVACAINE MPF 0.25% 10 ML VIAL. ONE; -LISI-334 PO; +LISI20TA18 PO
--- NOTE | 2020-06-02 10:23 | PDOC ---
Progress Note - Pain Clinic Date of Service: DOS: DATE: 06/02/20 TIME: 10:19 Diagnosis: Dx: Cervical radiculopathy with cervical degenerative disc disease cervical spinal stenosis and cervical herniated disc History or Present Illness: HPI: 55-year-old male returns follow-up status post cervical epidurals injection x2. Patient reports about 95% improvement in the neck and the right upper extremity pain patient reports still some pain rating the right shoulder anteriorly into the deltoid and bicep into the forearm as well as in the hand and fingers with some numbness and tingling but much improved the intensity the pain is much reduced patient rates his pain is a 2 on a scale of 10 is worse over the past week 1 on average 0 its least and is a 2 today patient reports is dull and tight tingling at times in the hand on and off in intensity sleeping better at night patient with increased activity with home activities patient reports has not returned to work yet has not been doing a lot of extreme repetitive motions with his right upper extremity but is sleeping much better. Patient reports still some pain radiating and radicular fashion in the right arm but much improved. Patient reports no new motor or sensory deficits no new bowel or bladder incontinence or other complaints. Physical Exam: VS: Blood pressure is 139/81 pulse 77 respirations 18 temperature 98.1 F height is 5 feet 10 inches weight is 227 pounds PE: PHYSICAL EXAMINATION: GENERAL: The patient is awake, alert, oriented, appropriate, very pleasant demeanor HEENT: Shows normocephalic, atraumatic. Extraocular movements are intact and sy mmetrical. NECK: Shows anterior throat supple without palpable lymphadenopathy noted. Swallow reflex symmetrical. CHEST: Shows normal on inspection. Breath sounds are clear bilaterally, no rales or rhonchi bilaterally.. HEART: Shows S1, S2 clear. No murmurs auscultated. ABDOMEN: Soft, nontender, nondistended, obese. No palpable organomegaly is noted. BACK: Shows spine grossly in the midline. Normal-appearing cervical lordotic curvature. Cervical paraspinous muscles show symmetrical with inspection, on palpation shows some moderate tenderness diffusely bilaterally in the middle and lower decrease the paraspinous muscles. Patient shows good rotation motion of the cervical spine both laterally greater than 45 degrees right and left as well as full extension full forward flexion without significant increase in pain. There is slightly increased thoracic kyphosis, some flattening of the lumbar lordotic curvature. EXTREMITIES: Upper extremities show deep tendon reflexes 2+ in the biceps and triceps tendons. Motor exam is 4 on a scale of 5 with right strength, biceps and triceps flexion and 5/5 on the left. Peripheral pulses are 2+ radial. No peripheral edema is noted bilaterally. Upper extremities are warm and dry to touch, equal in color and appearance. SKIN: Shows warm and dry, good turgor. No edema. No sores, rashes or bruising throughout. Procedure: Procedure: Options were discussed with the patient. Patient will chart reviews his current medication regimen updated current review of systems updated today as well. We will preauthorize patient for a third cervical epidural steroid injection is very well after the first injection still with radicular pain following C6-7 dermatomal distribution in the right upper extremity. Patient continue with physical therapy he has several sessions left as well as doing strengthening stretching exercises heat application on his own at home as currently. Patient return to the clinic we will plan on third translaminar C6-7 level cervical epidural steroid injection at that time. Medication Injected: Med Injected: None Condition at Discharge: Condition at Discharge: Condition at discharge is stable. DEEP SON MD Jun 02, 2020 10:23
== END | disposition home or self-care (01) ==
LOC: PNCL 09:46
PROVIDERS: ATTEND Anesthesiology
DX: M50.10 Cervical disc disorder with radiculopathy, unspecified cervical region (principal); M48.02 Spinal stenosis, cervical region; I10 Essential (primary) hypertension; J44.9 Chronic obstructive pulmonary disease, unspecified; K21.9 Gastro-esophageal reflux disease without esophagitis; E66.9 Obesity, unspecified; M19.90 Unspecified osteoarthritis, unspecified site; E11.9 Type 2 diabetes mellitus without complications; F17.210 Nicotine dependence, cigarettes, uncomplicated; Z79.4 Long term (current) use of insulin; Z79.899 Other long term (current) drug therapy; Z98.890 Other specified postprocedural states; Z72.89 Other problems related to lifestyle
CPT/HCPCS: 99212; J1030; J1040; J3490; Q9965; G0463